=== PATIENT | male | born 1965 | race Hispanic/Latino ===

== ENCOUNTER 2023-05-24 12:08 | Emergency (ER) | payer BC ==
--- OUTSIDE RECORDS SUMMARY | 2023-05-24 12:10 | XMS REPORT | Continuity of Care Document ---
:1965 Author Organization [facility] t Address [address] [place] [address] Care Team Providers Name Role Phone Jessie THOMPSON, Desmond Soto Primary Care Physician [phone] RENETTA CUNHA Attending Clinician Unavailable JEFF KITCHEN Attending Clinician Unavailable Therapy, [facility] Covid Infusion Attending Clinician Unavailable Jeff Kitchen MD Attending Clinician Doctor Unassigned, [place] Attending Clinician Unavailable Payers Payer Name Policy Type Policy Number Effective Date Expiration Date S shannonce [facility] [place] PPO AND [id number] 2020 00:00:00 OUT OF STATE [employer] OF [place] - [id number] 2018 00:00:00 OUT OF STATE Problems This patient has no known problems. Allergies, Adverse Reactions, Alerts Allergy Allergy Status Severity Reaction(s) Onset Inactive Treating Comm ents Source Name Type Date Date Clinician RED DYE DRUG Active Hives Univers INGREDI 9-25 ity of 00:00: [place] 00 [facility] Red Dye Propensi Active Hives Univers ty to 9-25 ity of adverse 00:00: [place] reaction [facility] Red Dye Propensi Active Rash [place] ty to -19 Health adverse 00:00: reaction 00 s NO KNOWN Drug Active Univers ALLERGIE Class ity of S [facility] Social History Social Habit Start Date Stop Date Quantity Comments Source Exposure to 2023-03-26 2023-04-05 Not sure [facility] SARS-CoV-2 (event) 00:00:00 08:20:00 Tobacco use and 2023-04-05 2023-04-05 Smokeless tobacco [place] [facility] exposure 00:00:00 00:00:00 non-user Sex Assigned At [birth year] [facility] 00:00:00 00:00:00 Smoking Status Start Date Stop Date Source Unknown if ever smoked [facility] Never smoked tobacco [facility] Medications Ordered Filled Start Stop Current Ordering Indication Dosage Frequency Signature Comments Components Source Medication Medication Date Date Medication? Clinician (SIG) Name Name Marilee, Yoselyn Yes 1mg Inject 1 UT MG/DOSE, 4 5-03 mg under Healt h MG/3ML 00:00: the skin 1 solution 00 (one) time pen-injecto per week. r simvastatin Yes TAKE 1 UT (Zocor) 10 5-01 TABLET BY Heal th MG tablet 00:00: MOUTH 00 EVERY DAY FOR HLD LORazepam Yes TAKE 1 UT (Ativan) 4-18 TABLET BY Health 0.5 MG 00:00: MOUTH 1 tablet 00 HOUR PRIOR TO MRI, MAY REPEAT EVERY 15 MINUTES IF STILL ANXIOUS casirivimab 2020- No [id number] 1200mg 1,200 mg, Univers -imdevimab 08-05 Subcutaneo it y of (REGEN-COV 15:00: 13:24 [place], ONCE, [place] (EUA)) 00 :00 1 dose, On Medical injection Sat Branch 1,200 mg 08/05/21 at 1000, Routine Vital Signs Vital Name Observation Time Observation Value Comments Source Systolic blood 2023-04-05 13:34:00 191 mm[Hg] [facility] pressure Diastolic blood 2023-04-05 13:34:00 100 mm[Hg] [facility] pressure Heart rate 2023-04-05 13:34:00 76 /min [facility] Body temperature 2023-04-05 13:33:00 35.56 Natalie [place] [facility] Body height 2023-04-05 13:33:00 182.9 cm [facility] Body weight 2023-04-05 13:33:00 111.585 kg [place] [facility] BMI 2023-04-05 13:33:00 33.36 kg/m2 [facility] Syst[facility] blood 2021-08-05 14:09:00 112 mm[Hg] Univer sity of pressure [facility] Diastolic blood 2021-08-05 14:09:00 66 mm[Hg] Unive rsity of pressure [facility] Heart rate 2021-08-05 14:09:00 96 /min General acute hospital Body temperature 2021-08-05 14:09:00 36.39 Natalie [facility] 2021-08-05 14:09:00 22 /min [facility] O[facility] saturation in 2021-08-05 14:09:00 96 /min [facility] blood by [facility] Pulse oximetry [place] Body height 2021-08-05 13:23:00 185.4 cm General acute hospital Body weight 2021-08-05 13:23:00 122.471 kg General acute hospital BMI 2021-08-05 13:23:00 35.62 kg/m2 General acute hospital Procedures Procedure Date / Time Performed Performing Clinician Sour e [id number] CONSENT 2021-08-05 05:01:00 Doctor Unassigned, No Unive [facility] Encounters Start End Encounter Admission Attending Care Care Encounter Source Date/Time Date/Time Type Type Clinicians Facility Department ID 2023-04-05 Outpatient [facility] [id number] [place] 08:[place]:35 [id number] 2023-03-30 Outpatient [facility] [id number] [place] 17:58:12 [id number] [facility] 2023-03-25 Outpatient [facility] [id number] [place] 09:23:14 [id number] [facility] 2023-03-21 Outpatient [facility] [id number] [place] 11:46:50 [id number] [facility] 2023-04-05 2023-04-05 Consult RENETTA CUNHA 6400 [id number] [place] 08:15:00 08:15:00 MK VAL[facility] [id number] Health [id number] 2021-08-05 2021-08-05 Outpatient [place] [facility] [id number] Univers 09:00:00 09:00:00 JEFF shane of [facility] 2021-08-05 2021-08-05 Nurse Therapy, [facility] Covid Infusion [facility] [id number] [facility] [place] 07:37:28 08:37:28 Visit Jeff Kitchen [id number] [place]y [id number] [id number] [address] Branch 2021-08-05 2021-08-05 Orders Doctor CLEOPATRA [id number] [facility] [place] 00:00:00 00:00:00 Only Unassigned, JODI [id number] ity of [place] [facility] [id number] Sacha as [id number] [place] [address] Branch Results This patient has no known results.
[2023-05-24 12:46] LABS: Absolute Lymphocytes (CBC) 0.6 K/uL (0.7-4.9); Hematocrit 38.3 % (39.6-49.0); Lymphocytes % 7.4 % (15.3-44.8); MCV 85.5 fL (80-100); MPV 9.5 fL (7.6-11.3); RBC Red Blood Cell Count 4.48 M/uL (4.33-5.43)
[2023-05-24 13:47] LABS: Albumin 3.3 g/dL (3.4-5.0); Bilirubin Total 0.5 mg/dL (0.2-1.0); Potassium 4.3 mEq/L (3.5-5.1); Protein, Total 7.1 g/dL (6.4-8.2)
--- NOTE | 2023-05-24 14:30 | RAD REPORT ---
EXAM DESCRIPTION: CTAbdomen Pelvis W Contrast - 05/24/2023 2:14 pm CLINICAL HISTORY: ABD PAIN COMPARISON: No comparisons TECHNIQUE: CT of the abdomen and pelvis was performed IV contrast. All CT scans are performed using dose optimization technique as appropriate and may include automated exposure control or mA/KV adjustment according to patient size. FINDINGS: Lower chest: No acute abnormality. Liver: Too small to characterize liver lesions which are likely benign. Biliary: No biliary ductal dilatation. Stomach: No significant focal abnormality. Duodenum: No significant focal abnormality. Pancreas: No significant abnormality. Spleen: No significant abnormality. Adrenal: Fat containing left renal masses consistent with myelolipomas. Kidney/ureter: No hydronephrosis. No renal calculi. Too small to characterize and/or benign appearing renal lesions are noted. Retroperitoneum: No retroperitoneal adenopathy. Vascular: No aneurysm. Mild atherosclerosis. Bowel: No significant focal abnormality. Peritoneum: Mild nonspecific mesenteric edema. This is of uncertain but doubtful acute clinical signi ficance. Bladder: Grossly unremarkable. Reproductive: No adnexal masses. Bones: No acute fracture. Other: n/a IMPRESSION: No acute intra-abdominal or pelvic finding.
--- NOTE | 2023-05-24 14:46 | EDPHYS ---
Physician Documentation [facility] Name: Joaquim Chowdary Age: 58 yrs Sex: Male : 1965 Arrival Date: 05/24/2023 Time: 12:08 Bed DX4 Private MD: YVONNE Physician Everardo uFnes HPI: 05/24 13:50 This 58 yrs old Male presents to ER via Wheelchair with complaints of Blood kb Pressure Problem, Nausea/Vomiting/Diarrhea. 13:51 The patient presents to the emergency department with nausea, vomiting, diarrhea, kb abdominal pain. Onset: The symptoms/episode began/occurred last night. Possible causes: unknown. The symptoms are aggravated by nothing. The symptoms are alleviated by nothing. Associated signs and symptoms: Pertinent positives: abdominal pain, diarrhea, nausea, vomiting, Pertinent negatives: fever. Severity of symptoms: At their worst the symptoms were moderate in the emergency department the symptoms have improved. The patient has not experienced similar symptoms in the past. The patient has not recently seen a physician. Pt reports n/v/d and abd pain that started last night. States vomiting and diarrhea subsided around 0300 this morning. Checked his BP and it was low. States it has been low for the past few weeks. Historical: - Allergies: 12:17 Red dye; ss - PMHx: 12:17 Diabetes mellitus; Hypertensive disorder; pituitary gland tumor; ss - PSHx: 12:17 Appendectomy; ss - Immunization history:: Client reports receiving the 2nd dose of the Covid vaccine. - Social history:: Smoking status: Patient denies any tobacco usage or history of. ROS: 13:50 Constitutional: Negative for fever, chills, and weight loss. kb 13:50 Abdomen/GI: Positive for abdominal pain, nausea, vomiting, and diarrhea. 13:50 All other systems are negative. Exam: 13:10 ECG was reviewed by the Attending Physician. kb 13:50 Constitutional: This is a well developed, well nourished patient who is awake, alert, kb and in no acute distress. Head/Face: Normocephalic, atraumatic. ENT: Moist Mucous membranes Cardiovascular: Regular rate and rhythm with a normal S1 and S2. No gallops, murmurs, or rubs. No pulse deficits. Respiratory: Respirations even and unlabored. No increased work of breathing. Talking in full sentences Skin: Warm, dry with normal turgor. Normal color. MS/ Extremity: Pulses equal, no cyanosis. Neurovascular intact. Full, normal range of motion. Neuro: Awake and alert, GCS 15, oriented to person, place, time, and situation. Moves all extremities. Normal gait. 13:50 Abdomen/GI: Inspection: abdomen appears normal, Bowel sounds: normal, Palpation: soft, in all quadrants, mild abdominal tenderness, in the right upper quadrant and right lower quadrant, moderate abdominal tenderness, in the left upper quadrant and left lower quadrant. Vital Signs: 12:14 BP 110 / 65; Pulse 84; Resp 16; Temp 98.1(O); Pulse Ox 99% on R/A; Pain 0/10; ss 12:17 Weight 111.13 kg; Height 6 ft. 0 in. ; ss 12:38 BP 111 / 65; Pulse 74; Resp 18; Pulse Ox 99% on R/A; Pain 0/10; mb9 15:05 BP 112 / 68; Pulse 70; Resp 16; Pulse Ox 100% ; mb9 12:17 Body Mass Index 33.23 (111.13 kg, 182.88 cm) ss 12:14 Pain Scale: Adult ss 12:38 Pain Scale: Adult mb9 MDM: 12:13 Patient medically screened. kb 13:51 Differential diagnosis: Nonspecific abd pain, diverticulitis, viral gastroenteritis. kb Data reviewed: vital signs, nurses notes. 14:42 Consideration of Admission/Observation Escalation of care including kb admission/observation considered. admission considered for intermittent hypotension, but BP has been stable during this visit (currently 131/78). Pt is awake, alert and oriented. Denies chest pain, shortness of breath, weakness. States this has been going on for 6 weeks. . Counseling: I had a detailed discussion with the patient and/or guardian regarding: the historical points, exam findings, and any diagnostic results supporting the discharge/admit diagnosis, lab results, radiology results, the need for outpatient follow up, a membership solicitor, a family practitioner, to return to the emergency department if symptoms worsen or persist or if there are any questions or concerns that arise at home. ED course: Discussed results with pt. Recommended follow up with cardiology for the intermittent hypotension over the last 6 weeks. States he has discussed it with his PCP and was told to come to the ER anytime it gets low. 05/24 12:22 Order name: CBC with Diff; Complete Time: 12:51 kb 05/24 12:22 Order name: CMP; Complete Time: 13:48 kb 05/24 12:22 Order name: Lipase; Complete Time: 13:48 kb 05/24 12:22 Order name: Troponin High Sensitivity; Complete Time: 13:48 kb 05/24 12:22 Order name: CT Abd/Pelvis - IV Contrast Only; Complete Time: 14:37 kb 05/24 12:22 Order name: EKG; Complete Time: 12:23 kb 05/24 12:22 Order name: IV Saline Lock; Complete Time: 12:36 kb 05/24 12:22 Order name: Labs collected and sent; Complete Time: 12:36 kb 05/24 12:22 Order name: EKG - Nurse/Tech; Complete Time: 12:36 kb EC:10 Rate is 85 beats/min. Rhythm is regular. Left axis deviation noted. NC interval is kb normal at 166 msec. QRS interval is normal at 136 msec. QT interval is normal at 483 msec. Administered Medications: 15:04 Drug: NS 0.9% IV 1000 ml Route: IV; Rate: 1000 ml; Site: right antecubital; mb9 16:36 Follow up: IV Status: Completed infusion; IV Intake: 1000ml aa5 Disposition Summary: 05/24/23 14:46 Discharge Ordered Location: Home kb Condition: Stable kb Diagnosis - Abdominal pain, Generalized kb - Vomiting kb - Diarrhea, unspecified kb Followup: kb - With: Emergency Department - When: As needed - Reason: Worsening of condition Followup: kb - With: Private Physician - When: 2 - 3 days - Reason: Recheck today's complaints, Continuance of care, Re-evaluation by your physician Discharge Instructions: - Discharge Summary Sheet kb - Food Choices to Help Relieve Diarrhea, Adult kb - Viral Gastroenteritis, Adult, [id number] kb - Abdominal Pain, Adult, [id number] kb - Diarrhea, Adult, Srvn-ib-[id number] kb - Hypotension, [id number] kb Forms: - Medication Reconciliation Form kb - Thank You Letter kb - Antibiotic Education kb - Prescription Opioid Use kb - Patient Portal Instructions kb Signatures: Dispatcher [employer] EDAshlyn Berry, DOG CATCHER-C DOG CATCHER-Kerrie Trent, RN RN ss Sheela Gordon RN RN mb9 Mera Carr RN aa5 Corrections: (The following items were deleted from the chart) 14:45 14:42 Consideration of Admission/Observation Escalation of care including kb admission/observation considered. kb
--- NOTE | 2023-05-24 14:46 | ER ---
Nurse's Notes [facility] Name: Joaquim Chowdary Age: 58 yrs Sex: Male : 1965 Arrival Date: 05/24/2023 Time: 12:08 Bed DX4 Private MD: Diagnosis: Abdominal pain, Generalized;Vomiting;Diarrhea, unspecified Presentation: 05/24 12:14 Chief complaint: Patient states: N/V/D that began last night. Pt reports that his blood ss pressure was low today, reading 96/60. Pt has noticed that his blood pressure seemed to be running low the past 3 weeks so he has not been taking his blood pressure medications. Coronavirus screen: Client denies travel out of the [place] in the last 14 days. Ebola Screen: Patient denies exposure to infectious person. Patient denies travel to an Ebola-affected area in the 21 days before illness onset. Initial Sepsis Screen: Does the patient meet any 2 criteria? No. Patient's initial sepsis screen is negative. Does the patient have a suspected source of infection? No. Patient's initial sepsis screen is negative. Risk Assessment: Do you want to hurt yourself or someone else? Patient reports no desire to harm self or others. Onset of symptoms was May 23, 2023. 12:14 Method Of Arrival: Wheelchair ss 12:14 Acuity: JAM 3 ss Historical: - Allergies: 12:17 Red dye; ss - PMHx: 12:17 Diabetes mellitus; Hypertensive disorder; pituitary gland tumor; ss - PSHx: 12:17 Appendectomy; ss - Immunization history:: Client reports receiving the 2nd dose of the Covid vaccine. - Social history:: Smoking status: Patient denies any tobacco usage or history of. Screenin:38 [facility] ED Fall Risk Assessment (Adult) History of falling in the last 3 months, mb9 including since admission No falls in past 3 months (0 pts) Confusion or Disorientation No (0 pts) Intoxicated or Sedated No (0 pts) Impaired Gait No (0 pts) Mobility Assist Device Used No (0 pt) Altered Elimination No (0 pt) Score/Fall Risk Level 0 - 2 = Low Risk Oriented to surroundings, Maintained a safe environment, Educated pt \T\ family on fall prevention, incl call for assistance when getting out of bed. Abuse screen: Denies threats or abuse. Nutritional screening: No deficits noted. Tuberculosis screening: No symptoms or risk factors identified. Assessment: 12:36 General: Appears uncomfortable, Behavior is calm, cooperative. Pain: Denies pain. mb9 Neuro: Terrell Agitation-Sedation Scale (RASS): 0 - Alert and Calm Level of Consciousness is awake, alert, obeys commands, Oriented to person, place, time, situation, Appropriate for age. Neuro: Reports dizziness. Cardiovascular: Heart tones S1 S2 present Patient's skin is warm and dry. Respiratory: Airway is patent Respiratory effort is even, unlabored, Respiratory pattern is regular, symmetrical, Breath sounds are clear bilaterally. GI: Abdomen is round non-distended, Bowel sounds present X 4 quads. Abd is soft and non tender X 4 quads. Reports diarrhea, nausea, vomiting. Derm: Skin is pink, warm \T\ dry. Musculoskeletal: Range of motion: intact in all extremities. 14:00 Reassessment: No changes from previously documented assessment. Patient and/or family mb9 updated on plan of care and expected duration. Pain level reassessed. Patient is alert, oriented x 3, equal unlabored respirations, skin warm/dry/pink. 15:05 Reassessment: discharge pending fluid completion. mb9 16:36 Reassessment: Patient is alert, oriented x 3, equal unlabored respirations, skin aa5 warm/dry/pink. Vital Signs: 12:14 BP 110 / 65; Pulse 84; Resp 16; Temp 98.1(O); Pulse Ox 99% on R/A; Pain 0/10; ss 12:17 Weight 111.13 kg; Height 6 ft. 0 in. ; ss 12:38 BP 111 / 65; Pulse 74; Resp 18; Pulse Ox 99% on R/A; Pain 0/10; mb9 15:05 BP 112 / 68; Pulse 70; Resp 16; Pulse Ox 100% ; mb9 12:17 Body Mass Index 33.23 (111.13 kg, 182.88 cm) ss 12:14 Pain Scale: Adult ss 12:38 Pain Scale: Adult mb9 ED Course: 12:09 Patient arrived in ED. ts1 12:13 Ashlyn Montes FNP-C [facility]. kb 12:13 Everardo Funes MD is Attending Physician. kb 12:17 Triage completed. ss 12:17 Arm band placed on right wrist. ss 12:21 Sheela Gordon, RN is Primary Nurse. mb9 12:30 Inserted saline lock: 20 gauge in right antecubital area, using aseptic technique. mb9 12:30 EKG done, by ED staff, reviewed by Ashlyn QUINTERO. mb9 12:36 CBC with Diff Sent. mb9 12:36 CMP Sent. mb9 12:36 Lipase Sent. mb9 12:37 Placed in gown. Bed in low position. Call light in reach. Side rails up X 1. Client mb9 placed on continuous cardiac and pulse oximetry monitoring. NIBP monitoring applied. satellite project site monitor on. 12:38 No provider procedures requiring assistance completed. mb9 14:18 CT Abd/Pelvis - IV Contrast Only In Process Unspecified. EDMS 16:37 IV discontinued, intact, bleeding controlled, No redness/swelling at site. Pressure aa5 dressing applied. Administered Medications: 15:04 Drug: NS 0.9% IV 1000 ml Route: IV; Rate: 1000 ml; Site: right antecubital; mb9 16:36 Follow up: IV Status: Completed infusion; IV Intake: 1000ml aa5 Medication: 16:37 VIS not applicable for this client. aa5 Intake: 16:36 IV: 1000ml; Total: 1000ml. aa5 Outcome: 14:46 Discharge ordered by . kb 16:37 Discharged to home ambulatory. aa5 16:37 Condition: stable 16:37 Discharge instructions given to patient, Instructed on discharge instructions, follow up and referral plans. Demonstrated understanding of instructions, follow-up care. 16:37 Patient left the ED. aa5 Signatures: Dispatcher [employer] EDMS Ashlyn Montes FNP-C FNP-Mera Jay RN RN aa5 Kerrie Palacios RN RN Sheela Gonzalez, RN RN mb9 Shilpi Sigala PAS PAS ts1
[2023-05-24] MEDS ORDERED: NA CHLORIDE 0.9% 1,000 ML ONE (15:09)
[2023-05-24 17:03] VITALS: TEMP 98.1
[2023-05-24 17:08] VITALS: BP 112/68; O2SAT 100
--- NOTE | 2023-05-27 11:52 | EKG ---
Test Date: 2023-05-24 Test Time: 12:28:54 Dive Master: MB MEASUREMENT RESULTS: Intervals: Rate: 86 AL: 166 QRSD: 134 QT: 406 QTc: 485 [place]: P: 39 AL: 166 QRS: -67 T: 51 INTERPRETIVE STATEMENTS: Normal sinus rhythm Right bundle branch block Left anterior fascicular block Bifascicular block Septal infarct, age undetermined Lateral infarct, age undetermined Abnormal ECG Compared to ECG 08/21/1999 15:57:00 Right bundle-branch block now present Left anterior fascicular block now present Bifascicular block now present Myocardial infarct finding now present Electronically Signed On 05-27-23 11:46:50 CDT by Jameson Yeager
--- NOTE | 2023-05-27 15:43 | EKG ---
Test Date: 2023-05-24 Test Time: 12:29:29 Wall Cleaner: MB MEASUREMENT RESULTS: Intervals: Rate: 85 SD: 166 QRSD: 136 QT: 406 QTc: 483 Counselor: P: 32 SD: 166 QRS: -71 T: 57 INTERPRETIVE STATEMENTS: Normal sinus rhythm Right bundle branch block Left anterior fascicular block Bifascicular block Septal infarct, age undetermined Lateral infarct, age undetermined Abnormal ECG Compared to ECG 05/24/2023 12:28:54 No significant changes Electronically Signed On 05-27-23 15:41:52 CDT by Jameson Yeager
== END 2023-05-24 16:37 | disposition home or self-care (01) ==
LOC: ER 12:08
DX: R10.84 Generalized abdominal pain (principal); R11.10 Vomiting, unspecified; R19.7 Diarrhea, unspecified; E11.9 Type 2 diabetes mellitus without complications; I10 Essential (primary) hypertension; Z91.048 Other nonmedicinal substance allergy status
CPT/HCPCS: 96361; 93005 ×2; 85025; 36415; 84484; 83690; 80053; 74177; 96360; 99285; Q9967; J7030

== ENCOUNTER 2024-03-16 15:54 | Emergency (ER) | payer BC ==
--- OUTSIDE RECORDS SUMMARY | 2024-03-16 15:57 | XMS REPORT | Continuity of Care Document ---
Author Name Unknown Address [address] [facility] [address] [place] [address] [facility] thconnect Address [address] 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 Name Role Phone None, None Primary Care Physician [phone] Doctor Unassigned, [place] Attending Clinician U RENETTA Reed Attending Clinician Unavailable JEFF KITCHEN Attending Clinician Unavailable Therapy, [facility] Covid Infusion Attending Clinician Unavailable Jeff Kitchen MD Attending Clinician [phone] Payers Payer Name Policy Type Policy Number Effective Date Expirati on Date Source [place] OUT OF STATE [id number] 2020 00:00:00 Allergies, Adverse Reactions, Alerts Allergy Name Allergy Type Status Severity Reaction(s) Onset Date Inactive Date Treating Clinician Comments Source RED DYE DRUG INGREDI Active Hives 08-05 00:00: 00 [facility] Red Dye Propensi ty to adverse reaction s Active Hives 08-05 00:00: 00 [facility] Red Dye Propensi ty to adverse reaction s Active Rash - 00:00: 00 [facility] NO KNOWN ALLERGIE S Drug Class Active [facility] Social History Social Habit Start Date Stop Date Quantity Comments Source [facility] Exposure to SARS-CoV-2 (event) 2023-03-26 00:00:00 2023-04-05 08:20:00 Not sure [facility] Tobacco use and exposure 2023-04-05 00:00:00 2023-04-05 00:00:00 Smokeless tobacco non-user [facility] Sex Ass[birth year] At 1965 00:00:00 1965 00:00:00 [facility] Smoking Status Start Date Stop Date Source Tobacco smoking consumption unknown [facility] Never smoked tobacco [facility] Medications Ordered Medication Name Filled Medication Name Start Date Stop Date Current Medication? Ordering Clinician Indication Dosage Frequency Signature (SIG) Comments Components Source Ozempic, 1 MG/DOSE, 4 MG/3ML solution pen-injecto r 03-13 00:00: 00 Yes 1mg Inject 1 mg under the skin 1 (one) time per week. [facility] simvastatin (Zocor) 10 MG tablet 03-11 00:00: 00 Yes TAKE 1 TABLET BY MOUTH EVERY DAY FOR HLD [facility] LORazepam (Ativan) 0.5 MG tablet 02-26 00:00: 00 Yes TAKE 1 TABLET BY MOUTH 1 HOUR PRIOR TO MRI, MAY REPEAT EVERY 15 MINUTES IF STILL ANXIOUS [facility] casirivimab -imdevimab (REGEN-COV (EUA)) injection 1,200 mg 08-05 15:00: 00 08-05 13:24 :00 No [id number] 1200mg 1,200 mg, Subcutaneo us, ONCE, 1 dose, On 08/05/21 at 1000, Routine [facility] Vital Signs Vital Name Observation Time Observation Value Comments S ource Systolic blood pressure 2023-04-05 13:34:00 191 mm[Hg] [facility] Diastolic blood pressure 2023-04-05 13:34:00 100 mm[Hg] [facility] Heart rate 2023-04-05 13:34:00 76 /min [facility] alth Body temperature 2023-04-05 13:33:00 35.56 Natalie [facility] Body height 2023-04-05 13:33:00 182.9 cm [facility] ealt Body weight 2023-04-05 13:33:00 111.585 kg [facility] BMI 2023-04-05 13:33:00 33.36 kg/m2 [facility] Systolic blood pressure 2021-08-05 14:09:00 112 mm[Hg] [facility] Diastolic blood pressure 2021-08-05 14:09:00 66 mm[Hg] [facility] Heart rate 2021-08-05 14:09:00 96 /min [facility] Body temperature 2021-08-05 14:09:00 36.39 Natalie [facility] Respiratory rate 2021-08-05 14:09:00 22 /min [facility] Oxygen saturation in Arterial blood by Pulse oximetry 2021-08-05 14:09:00 96 /min [facility] Body height 2021-08-05 13:23:00 185.4 cm [facility] Body weight 2021-08-05 13:23:00 122.471 kg [facility] BMI 2021-08-05 13:23:00 35.62 kg/m2 [facility] Procedures Procedure Date / Time Performed Performing Clinicia n Source REFERRAL- REQUEST/RESPONSE 2023-06-03 05:01:00 Doctor Unassigned, [place] [facility] [id number] CONSENT 2021-08-05 05:01:00 Doctor Unas signed, [place] [facility] Encounters Start Date/Time End Date/Time Encounter Type Admission Type Attending Clinicians Care Facility Care Department Encounter ID Source 2023-04-05 08:24:35 Outpatient [facility] [id number] [facility] 2023-03-30 17:58:12 Outpatient [facility] [id number] [facility] 2023-03-25 09:23:14 Outpatient [facility] [id number] [facility] 2023-03-21 11:46:50 Outpatient [facility] [id number] [facility] 2023-06-12 00:00:00 2023-06-12 00:00:00 Patient Secure Msg Doctor Unassigned, [place] [facility] [id number] [facility] 2023-06-03 00:00:00 2023-06-03 00:00:00 Orders Only Doctor Unassigned, [place] [facility] [id number] [facility] 2023-04-05 08:15:00 2023-04-05 08:15:00 Consult RENETTA CUN[facility] [address] [id number] [facility] 2021-08-05 09:00:00 2021-08-05 09:00:00 Outpatient JEFF CHOU [facility] [id number] [facility] 2021-08-05 07:37:28 2021-08-05 08:37:28 Nurse Visit Therapy, Ad[facility] Covid Jeff Zee [facility] [id number] [facility] 2021-08-05 00:00:00 2021-08-05 00:00:00 Orders Only Doctor Unassigned, [place] [facility] [id number] [facility]
--- NOTE | 2024-03-16 16:49 | RAD REPORT ---
EXAM DESCRIPTION: CT - Head C Spine Cap Wo Con - 03/16/2024 4:38 pm CLINICAL HISTORY: Trauma, head and neck injury. Chest, abdomen and pelvis pain. fall, neck pain, left side pain COMPARISON: No comparisons TECHNIQUE: CT head without contrast. CT cervical spine without contrast with coronal and sagittal reformatted images. CT chest, abdomen and pelvis without contrast with coronal and sagittal reformatted images of the [facility] ne. All CT scans are performed using dose optimization technique as appropriate and may include automated exposure control or mA/KV adjustment according to patient size. FINDINGS: CT HEAD WITHOUT CONTRAST: No intracranial hemorrhage, hydrocephalus or extra-axial fluid collection. No areas of brain edema o r midline shift. The paranasal sinuses and mastoids are clear. The calvarium is intact. CT CERVICAL SPINE WITHOUT CONTRAST: No fracture or subluxation. Mild lower cervical degenerative changes. The prevertebral soft tissues a re normal in thickness. CT CHEST, ABDOMEN, PELVIS WITHOUT CONTRAST: NOTE: Lack of contrast is a significant limitation in the assessment of trauma related findings. Spec ifically, solid organ, vascular and bowel evaluation is significantly limited. The lungs are clear.No pneumothorax or pericardial/pleural fluid. No evidence of intra-abdominal visceral injury, free fluid or free air is seen within the above detai led limitations. No concerning pelvic findings. There appears to be a fracture of the distal left clavicle. No rib fracture definitively seen. IMPRESSION: Fracture of the distal left clavicle.
[2024-03-16] MEDS ORDERED: HYDROCODONE/APAP 5/325 MG TAB ONE ×2 (17:06→17:16)
--- NOTE | 2024-03-16 17:18 | ER ---
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 c/o left sided pain. as6 Coronavirus screen: At this time, the client does not indicate any symptoms associated with coronavirus-19. Ebola Screen: No symptoms or risks identified at this time. Initial Sepsis Screen: Does the patient meet any 2 criteria? No. Patient's initial sepsis screen is negative. Does the patient have a suspected source of infection? No. Patient's initial sepsis screen is negative. Risk Assessment: Do you want to hurt yourself or someone else? Patient reports no desire to harm self or others. Onset of symptoms was March 16, 2024. 16:06 Method Of Arrival: Wheelchair as6 16:06 Acuity: JAM 3 as6 Historical: - Allergies: 16:07 Red Dye; as6 - PMHx: 16:07 diabetes mellitus; Hypertensive disorder; pituitary gland tumor; as6 - PSHx: 16:07 Appendectomy; as6 - Immunization history:: Adult Immunizations up to date. - Infectious Disease History:: Denies. - Social history:: Smoking status: Patient denies any tobacco usage or history of. Screenin:19 [facility] ED Fall Risk Assessment (Adult) History of falling in the last 3 months, db including since admission Yes- single mechanical fall (1 pt) Confusion or Disorientation No (0 pts) Intoxicated or Sedated No (0 pts) Impaired Gait No (0 pts) Mobility Assist Device Used No (0 pt) Altered Elimination No (0 pt) Score/Fall Risk Level 0 - 2 = Low Risk Oriented to surroundings, Maintained a safe environment. Abuse screen: Denies threats or abuse. Denies injuries from another. Nutritional screening: No deficits noted. Tuberculosis screening: No symptoms or risk factors identified. Assessment: 16:17 Reassessment: Patient appears in no apparent distress at this time. Patient and/or db family updated on plan of care and expected duration. Pain level reassessed. Patient is alert, oriented x 3, equal unlabored respirations, skin warm/dry/pink. General: Appears in no apparent distress. comfortable, Behavior is calm, cooperative. Pain: Complains of pain in abdomen and left arm. Neuro: Level of Consciousness is awake, alert, obeys commands, Oriented to person, place, time, situation, Speech is normal. Respiratory: Airway is patent Respiratory effort is even, unlabored, Respiratory pattern is regular, symmetrical. GI: Abdomen is flat. 17:10 Reassessment: Patient appears in no apparent distress at this time. Patient and/or db family updated on plan of care and expected duration. Pain level reassessed. Patient is alert, oriented x 3, equal unlabored respirations, skin warm/dry/pink. Vital Signs: 16:06 BP 151 / 79; Pulse 81; Resp 18 S; Temp 97.8; Pulse Ox 98% on R/A; Weight 112.49 kg (R); as6 Height 6 ft. 0 in. (R); Pain 8/10; 16:09 BP 140 / 93; Pulse 89; Resp 18; Pulse Ox 98% on R/A; db 17:10 BP 140 / 93; Pulse 88; Resp 16; Temp 97.8; Pulse Ox 98% ; db 16:06 Body Mass Index 33.63 (112.49 kg, 182.88 cm) as6 16:06 Pain Scale: Adult as6 ED Course: 15:56 Patient arrived in ED. im 16:01 Alyssia Jiménez PA-C is PHCP. sb4 16:01 Killian Vasquez MD is Attending Physician. sb4 16:07 Triage completed. as6 16:08 Arm band placed on. as6 16:15 Nohelia Guevara, DELBERT is Primary Nurse. db 16:19 Patient has correct armband on for positive identification. Bed in low position. Call db light in reach. Side rails up X 1. Pulse ox on. NIBP on. 16:[address] via wheelchair. db 16:40 CT Traumagram (Head C Spine CAP wo con) In Process Unspecified. EDMS 17:16 Chang Gibbs MD is Referral Physician. sb4 17:30 Provided Education on: FOLLOWUP ORTHO. db 17:30 No provider procedures requiring assistance completed. Patient did not have IV access db during this emergency room visit. Shoulder immobilizer applied on left shoulder. Administered Medications: 17:14 Drug: HYDROcodone-acetaminophen PO 5 mg-325 mg 2 tabs PO once Route: PO; rs5 17:32 Follow up: Response: No adverse reaction db Medication: 17:30 VIS not applicable for this client. db Outcome: :17 Discharge ordered by . sb4 17:30 Discharged to home ambulatory, db 17:30 Condition: stable 17:30 Discharge instructions given to patient, Instructed on discharge instructions, follow up and referral plans. Prescriptions given X 2, 17:32 Patient left the ED. db Signatures: Dispatcher [employer] EDMS Malik Lao RN RN as6 Nohelia Guevara RN RN db Alyssia Jiménez, PA-C PA-C sb4 Donnie Ramires, RN RN rs5 Meenakshi Simon
--- NOTE | 2024-03-16 17:18 | EDPHYS ---
Physician Documentation [facility] Name: Joaquim Chowdary Age: 59 yrs Sex: Male : 1965 Arrival Date: 03/16/2024 Time: 15:54 Bed 7 Private MD: ED Physician Killian Vasquez HPI: 03/16 16:23 This 59 yrs old Male presents to ER via Wheelchair with complaints of Fall sb4 Injury. 16:23 patient states he lost his footing earlier and fell onto his left side. complains of sb4 pain to his left neck, shoulder, and side. denies any loc. not on blood thinners. has not taken any medications for pain. no active bleeding. Historical: - Allergies: 16:07 Red Dye; as6 - PMHx: 16:07 diabetes mellitus; Hypertensive disorder; pituitary gland tumor; as6 - PSHx: 16:07 Appendectomy; as6 - Immunization history:: Adult Immunizations up to date. - Infectious Disease History:: Denies. - Social history:: Smoking status: Patient denies any tobacco usage or history of. ROS: 16:23 Constitutional: Negative for fever, chills, and weight loss, sb4 16:23 MS/extremity: Positive for per HPI, Exam: 17:40 Head/Face: Normocephalic, atraumatic. Eyes: Extra-ocular motions intact. Periorbital sb4 areas with no swelling, redness, or edema. ENT: Mucous membranes moist. Cardiovascular: Regular rate and rhythm with a normal S1 and S2. Respiratory: Lungs have equal breath sounds bilaterally, clear to auscultation and percussion. No rales, rhonchi or wheezes noted. No increased work of breathing, no retractions or nasal flaring. Abdomen/GI: Soft, non-tender, no distension. 17:40 Constitutional: The patient appears in no acute distress, alert, awake, obese, 17:40 Musculoskeletal/extremity: Joints: the left shoulder displays limited range of motion, pain at rest, painful range of motion, 17:40 Chest/axilla: Inspection: normal, Palpation: tenderness, that is moderate, of the left sb4 lateral anterior chest, that totally reproduces the patient's complaints, Vital Signs: 16:06 BP 151 / 79; Pulse 81; Resp 18 S; Temp 97.8; Pulse Ox 98% on R/A; Weight 112.49 kg (R); as6 Height 6 ft. 0 in. (R); Pain 8/10; 16:09 BP 140 / 93; Pulse 89; Resp 18; Pulse Ox 98% on R/A; db 17:10 BP 140 / 93; Pulse 88; Resp 16; Temp 97.8; Pulse Ox 98% ; db 16:06 Body Mass Index 33.63 (112.49 kg, 182.88 cm) as6 16:06 Pain Scale: Adult as6 MDM: 16:09 Patient medically screened. sb4 17:40 Data reviewed: vital signs, nurses notes, radiologic studies, and as a result, I will sb4 discharge patient. Counseling: I had a detailed discussion with the patient and/or guardian regarding the historical points, exam findings, and any diagnostic results supporting the discharge/admit diagnosis, radiology results, the need for outpatient follow up, a orthopedic surgeon, to return to the emergency department if symptoms worsen or persist or if there are any questions or concerns that arise at home. 03/16 16:19 Order name: CT Traumagram (Head C Spine CAP wo con); Complete Time: 16:50 sb4 03/16 16:55 Order name: Shoulder Immobilizer; Complete Time: 17:27 sb4 Administered Medications: 17:14 Drug: HYDROcodone-acetaminophen PO 5 mg-325 mg 2 tabs PO once Route: PO; rs5 17:32 Follow up: Response: No adverse reaction db Disposition Summary: 03/16/24 17:17 Discharge Ordered Notes: Location: Home sb4 Problem: new sb4 Symptoms: have improved sb4 Condition: Stable sb4 Diagnosis - Fracture of clavicle - left sb4 Followup: sb4 - With: Chang Gibbs MD - When: 10 - 14 days - Reason: Recheck today's complaints, Re-evaluation by your physician Discharge Instructions: - Discharge Summary Sheet sb4 - Clavicle Fracture, [id number] sb4 Forms: - Work release form sb4 - Prescription Opioid Use sb4 - Patient Portal Instructions sb4 - Leadership Thank You Letter sb4 Prescriptions: - Diclofenac Sodium 75 mg Oral Tablet Sustained Release - take 1 tablet ORAL route 2 times per day; 30 tablet; Refills: 0, Product sb4 Selection Permitted - Tramadol 50 mg Oral Tablet - take 1 tablet ORAL route every 8 hours as needed; 12 tablet; Refills: 0, sb4 Product Selection Permitted Signatures: Dispatcher [employer] Malik Jordan RN RN as6 Alyssia Jiménez PA-C PATash sb4 Donnie Ramires RN RN rs5 Nohelia Guevara RN db
[2024-03-16 18:05] VITALS: BP 140/93; TEMP 97.8; O2SAT 98
== END 2024-03-16 17:32 | disposition home or self-care (01) ==
LOC: ER 15:54
DX: S42.032A Displaced fracture of lateral end of left clavicle, initial encounter for closed fracture (principal); M54.2 Cervicalgia; Z91.048 Other nonmedicinal substance allergy status
CPT/HCPCS: 70450; 71250; 72125; 99284